=== PATIENT | male | born 1975 | race Caucasian/White ===

== ENCOUNTER 2017-07-02 08:16 | Emergency (ER) | payer OTHER ==
[~2017-07-02] VITALS: Ht 167.6 cm; Wt 110.0 kg
[~2017-07-02 08:16] MED LIST: GABA-113 PO; LISI20TA3 PO
[2017-07-02 08:26] VITALS: TEMP 37.4; Ht 167.6 cm; Wt 110.0 kg
--- NOTE | 2017-07-02 08:48 | DIAGNOSTIC IMAGING REPORT ---
LEFT KNEE 3 VIEWS HISTORY: L knee pain COMPARISON: None. FINDINGS: There is no fracture or dislocation. Mild prepatellar soft tissue swelling. Subchondral cystic change within the patella. This favors degenerative change. Tiny tricompartmental marginal osteophytes. Mild cartilage space narrowing within the medial compartment of the left knee. Small to moderate knee effusion. IMPRESSION: 1. No fracture or dislocation within the left knee. 2. Small to moderate knee effusion. 2. 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 Electronically signed by: Paul Morejon M.D. 07/02/2017 8:47 AM Dictated Date/Time: 07/02/2017 8:46 AM
[2017-07-02 10:10] VITALS: BP 146/97; PULSE 87; O2SAT 100
--- NOTE | 2017-07-02 14:28 | EMERGENCY ROOM VISIT NOTE ---
History First contact with patient: 08:29 Chief Complaint: KNEEPAIN Stated Complaint: LEFT KNEE, EXTREME PAIN History of Present Illness The patient is a 42 year old male who presents to the Emergency Room with complaints of persistent left knee pain after injuring his knee at work. The patient believes that the injury happened on 06/18/17 when he was on the floor, attempted to stand up while lifting something heavy, twisting the leg and feeling a pop in the posterior lateral region of the knee. The patient currently denies any pain extending into the thigh or leg. He denies any paresthesias or numbness of the left lower extremity. He has not noticed any swelling of the knee, and denies any prior history of significant knee pain or prior injuries. He rates his discomfort an 8 out of 10 with weightbearing. The patient has not seen his PCP or Worker's Compensation physician for this injury. Review of Systems 10 system review was performed and was negative except for pertinent positives and negatives as indicated in history of present illness Past Medical/Surgical History Medical Problems: (1) Acute radicular low back pain (2) Acute radicular low back pain (3) HTN (hypertension) (4) Lumbar degenerative disc disease (5) Myasthenia Gravis W/O (Acute) Exacerbation (6) Obesity (7) Obstructive Sleep Apnea (Adult) (Pediatric) Surgical Problems: (1) H/O thymectomy Family History Cancer Diabetes mellitus Gallbladder disease Heart disease Hypertension Kidney disease Kidney stones Social History Smoking Status: Former Smoker Alcohol Use: occasionally Marital Status: Housing Status: lives with family Occupation Status: employed Current/Historical Medications Scheduled Lisinopril (Prinivil), 20 MG PO DAILY Physical Exam Vital Signs Date Time Temp Pulse Resp B/P (MAP) Pulse Ox O2 Delivery O2 Flow Rate FiO2 07/02/17 10:10 87 20 146/97 100 07/02/17 08:26 37.4 137 20 150/132 98 Physical Exam CONSTITUTIONAL: Healthy and well nourished. Alert and oriented X 3 with positive affect. Patient does not appear in any acute distress. HEENT: Normocephalic, atraumatic. Pupils equal, round and reactive. NECK: Full active range of motion without discomfort. MUSCULOSKELETAL: Examination of the left knee does not show any wrist deformity or ecchymosis. He does have a mild 1+ joint effusion. Examination shows mild tenderness to palpation over the posterior lateral joint line. He has minimal discomfort over the anterior medial joint line. Negative anterior draw, negative posterior drawer, negative pivot shift. Collateral ligaments are intact with varus and valgus stress. Pedal pulses are intact. No popliteal masses INTEGUMENTARY: No rash or other significant dermatologic conditions noted. NEUROLOGIC: No focal neurologic deficits noted. Left lower extremity is sensory intact. Medical Decision & Procedures ER Provider Diagnostic Interpretation: My interpretation of left knee x-rays shows tricompartmental degenerative changes with a moderate joint effusion. No dislocation or other fractures noted. Radiologist report is as follows: LEFT KNEE 3 VIEWS HISTORY: L knee pain COMPARISON: None. FINDINGS: There is no fracture or dislocation. Mild prepatellar soft tissue swelling. Subchondral cystic change within the patella. This favors degenerative change. Tiny tricompartmental marginal osteophytes. Mild cartilage space narrowing within the medial compartment of the left knee. Small to moderate knee effusion. IMPRESSION: 1. No fracture or dislocation within the left knee. 2. Small to moderate knee effusion. 2. 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 ED Course Patient history and physical exam were performed. Nurse's notes were reviewed. Vital signs were reviewed, showing an elevated blood pressure 150/132. The patient refused any analgesics while in the emergency department. X-rays of the left knee were normal. A knee immobilizer and crutches were applied. The patient was encouraged to follow-up with his Worker's Compensation approved orthopedic surgeon for further reevaluation and management. Ice and elevation for swelling. Ibuprofen and Tylenol in alternating fashion if needed for additional pain relief. The patient was happy with plan of care, and voiced understanding of all discharge instructions. The patient was also advised of his elevated blood pressure, and encouraged to follow-up with his PCP for a blood pressure recheck. Medical Decision Medication Reconcilliation Current Medication List: was personally reviewed by me Blood Pressure Screening Patient's blood pressure: Elevated blood pressure Blood pressure disposition: Referred to PCP Impression Primary Impression: Left knee injury Additional Impressions: Work related injury Elevated blood pressure reading Departure Information Referrals Fahad Wan M.D. ([facility]) (PCP) Patient Instructions My [facility] Problem Qualifiers
== END 2017-07-02 10:10 | disposition home or self-care (01) ==
LOC: C.EDB 08:17 → C.EDA 10:10
DX: S89.92XA Unspecified injury of left lower leg, initial encounter (principal); I10 Essential (primary) hypertension; G47.33 Obstructive sleep apnea (adult) (pediatric); Z79.899 Other long term (current) drug therapy; Z87.891 Personal history of nicotine dependence; Z82.49 Family history of ischemic heart disease and other diseases of the circulatory system; Z83.3 Family history of diabetes mellitus; Z83.79 Family history of other diseases of the digestive system; Z84.1 Family history of disorders of kidney and ureter; X50.9XXA Other and unspecified overexertion or strenuous movements or postures, initial encounter; Y99.0 Civilian activity done for income or pay

== ENCOUNTER → 2017-08-03 | Outpatient (CLI) | payer BC ==
[~2017-08-03] MED LIST changes: -GABA-113 PO; +OPTIRAY 320 IV PRN
--- NOTE | 2017-08-03 09:04 | DIAGNOSTIC IMAGING REPORT ---
CT OF THE CHEST WITH IV CONTRAST CLINICAL HISTORY: Myasthenia gravis. Follow-up thymic resection. COMPARISON STUDY: Chest CT July 02, 2014 and chest radiograph July 30, 2015. TECHNIQUE: Following IV administration of 93 mL of Optiray-320, helical axial images of the chest were obtained. Sagittal and coronal reconstructions were viewed as well as maximal intensity projections on an independent 3-D workstation. A dose lowering technique was utilized adhering to the principles of ALARA. CT DOSE: 1024.71 mGy.cm FINDINGS: The size of the heart is normal. No enlarged axillary, mediastinal or hilar lymph nodes are present. The patient is status post median sternotomy and suspected thymectomy. Minimal anterior mediastinal fluid is unchanged since initial CT of July 04, 2013. There is no soft tissue mass to suggest recurrent fibroma. The postoperative appearance is unchanged. No consolidation to suggest pneumonia is present. Band-like right upper lobe opacity likely reflects scarring. Central airways are patent. Bony thorax is unremarkable. Visualized portions of the upper abdomen demonstrate probable gallstones within the gallbladder. There is also severe multifocal scarring within the left kidney and scarring within the upper pole of the right kidney. Bilateral collecting system dilatation is partially imaged on this exam. IMPRESSION: 1. No evidence for recurrent thymoma status post thymectomy. No change in minimal anterior mediastinal fluid since CT of July 04, 2013 which likely reflects fluid within a pericardial recess. 2. Severe multifocal scarring of the left kidney with scarring within the upper pole of the right kidney. Bilateral collecting system dilatation, partially imaged on this exam. This collection system dilatation is nonspecific but could be seen in setting of a bladder abnormality or vesicoureteral reflux. 3. Probable cholelithiasis. Electronically signed by: Gerber Fontaine M.D. 08/03/2017 9:03 AM Dictated Date/Time: 08/03/2017 8:50 AM
== END | disposition home or self-care (01) ==
LOC: C.CTS 08:17
PROVIDERS: ATTEND Psychiatry & Neurology Neurology
DX: G70.00 Myasthenia gravis without (acute) exacerbation (principal); N28.89 Other specified disorders of kidney and ureter